=== PATIENT | female | born 1960 | race Caucasian/White ===

== ENCOUNTER 2021-11-20 09:03 | Day surgery (SDC) | payer MEDICARE ==
[~2021-11-20] VITALS: Ht 162.6 cm; Wt 72.1 kg
[~2021-11-20 09:03] MED LIST: CEFP200 PO; DULO60 PO; LACT PO; OMEP20ER PO; OXYC10TA19 PO; SODBIC650 PO; THERA-D2000 UNIT PO; TRAZ50 PO; XARELTO20 MG PO
[2021-11-20 10:35] LABS: BASOPHILS ABSOLUTE AUTO 0.11 K/mm3 (0.00-0.23); BASOPHILS PERCENT AUTO 1 % (0-2); EOSINOPHILS ABSOLUTE AUTO 0.19 K/mm3 (0.00-0.68); EOSINOPHILS PERCENT AUTO 2 % (0-6); Hematocrit 34.2 % (33.0-51.0); Hemoglobin 10.8 g/dL (11.5-16.0); IMMATURE GRAN ABSOLUTE AUTO 0.05 K/mm3 (0.00-0.10); IMMATURE GRAN PERCENT AUTO 1 % (0-1); LYMPHOCYTES ABSOLUTE AUTO 1.79 K/mm3 (0.84-5.20); LYMPHOCYTES PERCENT AUTO 21 % (21-46); MONOCYTES ABSOLUTE AUTO 0.86 K/mm3 (0.16-1.47); MONOCYTES PERCENT AUTO 10 % (4-13); Mean Corpuscular HGB 31.5 pg (26.0-34.0); Mean Corpuscular HGB Conc 31.6 g/dL (31.5-36.5); Mean Corpuscular Volume 100 fL (80-100); Mean Platelet Volume 9.7 fL (9.1-12.4); NEUTROPHILS ABSOLUTE AUTO 5.66 K/mm3 (1.96-9.15); NEUTROPHILS PERCENT AUTO 65 % (41-73); Platelet Count 481 K/mm3 (150-400); RDW Standard Deviation 62.6 fL (35.1-46.3); Red Blood Cell Count 3.43 M/mm3 (3.80-5.20); White Blood Cell Count 8.66 K/mm3 (4.00-11.30)
[2021-11-20 10:54] LABS: Bun/Creatinine Ratio 16.5 (12.0-20.0); Calcium, Blood 8.6 mg/dL (8.5-10.1); Creatinine, Blood 1.7 mg/dL (0.40-1.00); Potassium, Blood 3.9 mmol/L (3.5-5.5)
[2021-11-20 11:45] LABS: Source, Urine Nephrostomy
[2021-11-20 11:54] LABS: Appearance, Urine Bloody (Clear); Bilirubin, Urine Neg (Neg); Blood, Urine 5+ (Neg); Color, Urine Red (P-Yellow); Glucose Qualitative, Urine Neg (Neg); Ketones, Urine Neg (Neg); Leukocyte Esterase, Urine 3+ (Neg); Nitrite, Urine Neg (Neg); Protein, Urine 3+ (Neg); Specific Gravity, Urine 1.015 (1.003-1.022); Urobilinogen, Urine NORM (Normal)
[2021-11-20 11:57] LABS: Source, Urine Nephrostomy
[2021-11-20 12:01] LABS: Red Blood Cells, Urine TNTC /hpf (0-2); White Blood Cells, Urine TNTC /hpf (0-5)
[2021-11-20 12:03] LABS: Bacteria Mod /hpf; Squamous Epithelial Cells Not Seen /hpf (Few)
[2021-11-20 12:05] LABS: Appearance, Urine Turbid (Clear); Bilirubin, Urine Neg (Neg); Blood, Urine 5+ (Neg); Color, Urine Yellow (P-Yellow); Glucose Qualitative, Urine Neg (Neg); Ketones, Urine Neg (Neg); Leukocyte Esterase, Urine 3+ (Neg); Nitrite, Urine Neg (Neg); Protein, Urine 3+ (Neg); Urobilinogen, Urine NORM (Normal)
--- NOTE | 2021-11-20 12:05 | NUR ---
PT TO RECOVERY ROOM POST PROCEDURE. PT DROWSY, BUT CONVERSING APPROPRIATELY; NIKOLAS PAIN POST PROCEDURE. MONITOR SR WITH IVCD 90'S, B/P 128/82, AFEBRILS, SPO2 100% RA. R FLANK NEPH TUBE NO SWELLING/HEMATOMA, TEGADERM DRSG INTACT; CONNECTED TO DRAINAGE BAG-DRAINING BLOOD TINGED URINE. L FLANK NO SWELLING/HEMATOMA, TEGADERM DRSG INTACT; CONNECTED TO DRAINAGE BAG DRAINING BLOOD TINGED URINE. PT'S AT BEDSIDE ATTENTIVE.
[2021-11-20 12:50] LABS: White Blood Cells, Urine TNTC /hpf (0-5)
[2021-11-20 12:51] LABS: Red Blood Cells, Urine 50-100 /hpf (0-2)
[2021-11-20 12:53] LABS: Bacteria Mod /hpf; Squamous Epithelial Cells Rare /hpf (Few)
--- NOTE | 2021-11-20 13:40 | NUR ---
PT DRESSED SELF WITHOUT ISSUE, SITES UNCHANGED; IV REMOVED-CANNULA INTACT. PT AMB TO BATHROOM TO EMPTY NEPH TUBE DRAINAGE BAGS, GAIT STEADY.
--- NOTE | 2021-11-20 13:47 | NUR ---
PT AND RECEIVED DISCHARGE INSTRUCTIONS, MED LIST AND AFTER CARE INSTRUCTIONS; VERBALIZED GOOD UNDERSTANDING. PT LEFT FACILITY VIA W/C, CONDITION STABLE.
== END 2021-11-20 13:47 | disposition home or self-care (01) ==
LOC: MHTC 09:03
PROVIDERS: Internal Medicine
DX: N13.5 Crossing vessel and stricture of ureter without hydronephrosis (principal); I10 Essential (primary) hypertension; Z88.2 Allergy status to sulfonamides; Z79.01 Long term (current) use of anticoagulants; Z79.899 Other long term (current) drug therapy
CPT/HCPCS: 36415; 80048; 81001; 85025; 87077; 87086; 87186; 99152; 99153; C1729; C1769; C1887; J0692; J2250; J3010; J7030; J7040; Q9967

== ENCOUNTER 2022-01-21 13:28 | Inpatient (IN) | payer MEDICARE ==
[~2022-01-21] VITALS: Ht 162.6 cm; Wt 68.6 kg
[2022-01-21 14:41] LABS: BASOPHILS ABSOLUTE AUTO 0.07 K/mm3 (0.00-0.23); BASOPHILS PERCENT AUTO 0 % (0-2); EOSINOPHILS ABSOLUTE AUTO 0.06 K/mm3 (0.00-0.68); EOSINOPHILS PERCENT AUTO 0 % (0-6); Hematocrit 33.4 % (33.0-51.0); Hemoglobin 11.5 g/dL (11.5-16.0); IMMATURE GRAN ABSOLUTE AUTO 0.89 K/mm3 (0.00-0.10); IMMATURE GRAN PERCENT AUTO 3 % (0-1); LYMPHOCYTES ABSOLUTE AUTO 0.42 K/mm3 (0.84-5.20); LYMPHOCYTES PERCENT AUTO 1 % (21-46); MONOCYTES ABSOLUTE AUTO 1.37 K/mm3 (0.16-1.47); MONOCYTES PERCENT AUTO 4 % (4-13); Mean Corpuscular HGB 31.1 pg (26.0-34.0); Mean Corpuscular HGB Conc 34.4 g/dL (31.5-36.5); Mean Corpuscular Volume 90 fL (80-100); Mean Platelet Volume 10.6 fL (9.1-12.4); NEUTROPHILS ABSOLUTE AUTO 31.78 K/mm3 (1.96-9.15); NEUTROPHILS PERCENT AUTO 92 % (41-73); NRBC ABSOLUTE 0.07 K/mm3 (0.00-0.02); NRBC Auto 0.2 /100 WBC (0.0-0.2); Platelet Count 656 K/mm3 (150-400); RDW Coefficient Variation 14.6 % (11.7-14.2); RDW Standard Deviation 48.4 fL (35.1-46.3); White Blood Cell Count 34.59 K/mm3 (4.00-11.30)
[2022-01-21 14:52] LABS: Albumin, Blood 2.7 g/dL (3.4-5.0); Albumin/Globulin Ratio 0.4 (0.8-1.8); Bilirubin, Total 0.5 mg/dL (0.1-1.0); Bun/Creatinine Ratio 20.3 (12.0-20.0); Calcium, Blood 8.7 mg/dL (8.5-10.1); Creatinine, Blood 7.08 mg/dL (0.40-1.00); Globulin, Blood 6.5 g/dL (2.2-4.0); Potassium, Blood 3.1 mmol/L (3.5-5.5); Total Protein, Blood 9.2 g/dL (6.4-8.2)
[2022-01-21 15:54] LABS: Source, Urine Nephrostomy
[2022-01-21 16:14] LABS: Appearance, Urine Turbid (Clear); Bilirubin, Urine Neg (Neg); Blood, Urine 4+ (Neg); Color, Urine Amber (P-Yellow); Glucose Qualitative, Urine Neg (Neg); Ketones, Urine Neg (Neg); Leukocyte Esterase, Urine 3+ (Neg); Nitrite, Urine Neg (Neg); Protein, Urine 3+ (Neg); Specific Gravity, Urine 1.015 (1.003-1.022); Urobilinogen, Urine NORM (Normal)
[2022-01-21 16:40] LABS: Amorphous Heavy (0-Heavy); Bacteria Many /hpf; Squamous Epithelial Cells Rare /hpf (Few); White Blood Cells, Urine TNTC /hpf (0-5)
[2022-01-21 17:38] LABS: Source, Urine Nephrostomy
[2022-01-21 17:48] LABS: Appearance, Urine Turbid (Clear); Bilirubin, Urine Neg (Neg); Blood, Urine 4+ (Neg); Glucose Qualitative, Urine Neg (Neg); Ketones, Urine 1+ (Neg); Leukocyte Esterase, Urine 3+ (Neg); Nitrite, Urine Neg (Neg); Protein, Urine 3+ (Neg); Urobilinogen, Urine NORM (Normal)
[2022-01-21] MEDS ORDERED: Atarax10 MG PO (17:58)
[2022-01-21] MEDS ORDERED: ELIQUIS2.5 M1 PO (17:59)
[2022-01-21] MEDS ORDERED: CARVEDILOL6.25 MG PO (17:59)
[2022-01-21 18:50] LABS: Color, Urine Pale Yellow (P-Yellow); White Blood Cells, Urine TNTC /hpf (0-5)
[2022-01-21 18:52] LABS: Bacteria Many /hpf; Red Blood Cells, Urine 25-50 /hpf (0-2); Squamous Epithelial Cells Rare /hpf (Few)
[2022-01-21 19:22] LABS: Albumin, Blood 2.7 g/dL (3.4-5.0); Anion Gap 22 mmol/L (6-16); Blood Urea Nitrogen 146 mg/dL (8-24); Bun/Creatinine Ratio 20.5 (12.0-20.0); CO2, Blood 7 mmol/L (21-32); Calcium, Blood 8.8 mg/dL (8.5-10.1); Chloride, Blood 98 mmol/L (98-108); Creatinine, Blood 7.11 mg/dL (0.40-1.00); Glomerular Filtration Rate 6 (60-); Glucose, Blood 183 mg/dL (70-99); Phosphorus, Blood 9.9 mg/dL (2.5-4.9); Potassium, Blood 3.2 mmol/L (3.5-5.5); Sodium, Blood 127 mmol/L (136-145)
--- NOTE | 2022-01-21 20:00 | NUR ---
ASSUMED CARE OF PT AT 194. REPORT RECEIVED. PT ARRIVES TO ROOM ICU 10 FROM ED. SLIDE TRANSFERRED TO BED. PT ALERT AND ORIENTED. VERY FATIQUED AND SOFT SPOKEN. NEPHROSTOMY TUBES TIMES 2 WITH BAGS. ILEOSTOMY BAG WELL. WILL REVIEW CHART AND PLAN OF CARE FOR THIS PT.
[2022-01-21 20:10] LABS: Albumin, Blood 2.2 g/dL (3.4-5.0); Anion Gap 19 mmol/L (6-16); Blood Urea Nitrogen 141 mg/dL (8-24); Bun/Creatinine Ratio 21.5 (12.0-20.0); CO2, Blood 9 mmol/L (21-32); Calcium, Blood 8.2 mg/dL (8.5-10.1); Chloride, Blood 100 mmol/L (98-108); Creatinine, Blood 6.56 mg/dL (0.40-1.00); Glomerular Filtration Rate 7 (60-); Glucose, Blood 171 mg/dL (70-99); Potassium, Blood 3.4 mmol/L (3.5-5.5); Sodium, Blood 128 mmol/L (136-145)
[2022-01-21 22:03] LABS: Anion Gap 17 mmol/L (6-16); Blood Urea Nitrogen 136 mg/dL (8-24); Bun/Creatinine Ratio 22.6 (12.0-20.0); CO2, Blood 11 mmol/L (21-32); Calcium, Blood 7.9 mg/dL (8.5-10.1); Chloride, Blood 104 mmol/L (98-108); Creatinine, Blood 6.01 mg/dL (0.40-1.00); Glomerular Filtration Rate 8 (60-); Glucose, Blood 118 mg/dL (70-99); Magnesium, Blood 1.2 mg/dL (1.6-2.4); Phosphorus, Blood 7.2 mg/dL (2.5-4.9); Potassium, Blood 2.9 mmol/L (3.5-5.5); Sodium, Blood 132 mmol/L (136-145)
--- NOTE | 2022-01-21 23:38 | NUR ---
LABS HAVE BEEN CALLED TO DR RAMOS WITH ORDERS RECEIVED. DR FELIX ALSO PHONES TO GET UPDATE ON PT. PT HAS POWERGLIDE PLACED BY FABIAN SANZ IN RIGHT UPPER ARM. TWO ATTEMPTS IN LEFT UPPER ARM UNSUCCESSFUL. PT GOOD HISTORIAN THOUGH OCCASSIONALY FORGETFUL. TOLERATING IV ANTIBIOTICS WELL. NO S/S ADVERSE REACTIONS. WILL CONTINUE TO MONITOR PT.
--- NOTE | 2022-01-22 03:10 | NUR ---
CALL MADE TO DR MONAHAN CONCERNING PT WITH INVOLVEMENT IN ALL LEADS WITH ST. CRP, EKG, AND ECHO TO BE DONE. PT HAS NO COMPLAINTS OF CHEST PAIN.
[2022-01-22 04:13] LABS: BASOPHILS ABSOLUTE AUTO 0.02 K/mm3 (0.00-0.23); BASOPHILS PERCENT AUTO 0 % (0-2); EOSINOPHILS ABSOLUTE AUTO 0.03 K/mm3 (0.00-0.68); EOSINOPHILS PERCENT AUTO 0 % (0-6); Hematocrit 24.8 % (33.0-51.0); Hemoglobin 8.6 g/dL (11.5-16.0); IMMATURE GRAN ABSOLUTE AUTO 0.36 K/mm3 (0.00-0.10); IMMATURE GRAN PERCENT AUTO 2 % (0-1); LYMPHOCYTES ABSOLUTE AUTO 1.19 K/mm3 (0.84-5.20); LYMPHOCYTES PERCENT AUTO 5 % (21-46); MONOCYTES ABSOLUTE AUTO 0.97 K/mm3 (0.16-1.47); MONOCYTES PERCENT AUTO 4 % (4-13); Mean Corpuscular HGB 30.8 pg (26.0-34.0); Mean Corpuscular HGB Conc 34.7 g/dL (31.5-36.5); Mean Corpuscular Volume 89 fL (80-100); Mean Platelet Volume 10.3 fL (9.1-12.4); NEUTROPHILS ABSOLUTE AUTO 20.14 K/mm3 (1.96-9.15); NEUTROPHILS PERCENT AUTO 89 % (41-73); NRBC ABSOLUTE 0.05 K/mm3 (0.00-0.02); NRBC Auto 0.2 /100 WBC (0.0-0.2); Platelet Count 474 K/mm3 (150-400); RDW Standard Deviation 45.4 fL (35.1-46.3); Red Blood Cell Count 2.79 M/mm3 (3.80-5.20); White Blood Cell Count 22.71 K/mm3 (4.00-11.30)
--- NOTE | 2022-01-22 04:42 | NUR ---
MEDICATED WITH 25 MCG'S FENTANYL FOR COMPLAINTS OF LEFT ABDOMINAL PAIN WITH RADIATION TO CHEST AND BACK. DID ADD TROPONIN TO AM LABS PER DR MONAHAN AND WILL GET EKG TO RULE OUT CARDIAC INVOLVEMENT.
[2022-01-22 04:45] LABS: CPK Creatine Kinase 19 U/L (26-193); Magnesium, Blood 2.1 mg/dL (1.6-2.4); Uric Acid, Blood 10.6 mg/dL (2.6-6.0)
[2022-01-22 04:56] LABS: Alanine Aminotransfer (ALT/SGP 7 U/L (12-78); Albumin, Blood 1.9 g/dL (3.4-5.0); Albumin/Globulin Ratio 0.4 (0.8-1.8); Alk Phos 17 U/L (50-136); Anion Gap 16 mmol/L (6-16); Aspartate Aminotrans (AST/SGOT 10 U/L (12-37); Bilirubin, Total 0.6 mg/dL (0.1-1.0); Blood Urea Nitrogen 125 mg/dL (8-24); Bun/Creatinine Ratio 25.5 (12.0-20.0); CO2, Blood 15 mmol/L (21-32); Calcium, Blood 7.6 mg/dL (8.5-10.1); Chloride, Blood 101 mmol/L (98-108); Globulin, Blood 4.5 g/dL (2.2-4.0); Glomerular Filtration Rate 10 (60-); Glucose, Blood 169 mg/dL (70-99); Phosphorus, Blood 5.3 mg/dL (2.5-4.9); Potassium, Blood 2.5 mmol/L (3.5-5.5); Sodium, Blood 132 mmol/L (136-145); Vancomycin, Random 25.9 ug/mL
[2022-01-22 05:13] LABS: Total Protein, Blood 6.4 g/dL (6.4-8.2)
--- NOTE | 2022-01-22 07:14 | NUR ---
ASSUME CARE: I have assumed care of patient at this time.
--- NOTE | 2022-01-22 09:30 | NUR ---
FAMILY PHONE CALL: Pt's , Darius, called and updated on pt status.
--- NOTE | 2022-01-22 10:31 | NUR ---
UPDATE: Provider called for pt's home oxycodone; He states he will place order
--- NOTE | 2022-01-22 11:34 | NUR ---
SHIFT SUMMARY/TRANSFER: Report given to Aron in PCU. NEURO: Pt a/o x4, moving all extremities. She complains of generalized aching for which she was given one dose of PRN IV fentanyl and her home dose of 10mg oxycodone PO. RESPIRATORY: CTA on RA. CARDIAC: sinus rhythm on monitor. SBPs 90-100s with MAPs 65-70. GI: ileostomy bag in place. hypoactive bowel tones : bilateral urostomy tubes and ileal conduit in place. drained at 11am and ice packs placed on urostomy bags for 24-hour urine collection. PSYCH/SOCIAL: pt agreeable. called for update and states he will be by to visit this afternoon.
[2022-01-22 16:57] LABS: Albumin, Blood 1.7 g/dL (3.4-5.0); Anion Gap 14 mmol/L (6-16); Blood Urea Nitrogen 104 mg/dL (8-24); Bun/Creatinine Ratio 29.6 (12.0-20.0); CO2, Blood 19 mmol/L (21-32); Calcium, Blood 7.6 mg/dL (8.5-10.1); Chloride, Blood 101 mmol/L (98-108); Creatinine, Blood 3.51 mg/dL (0.40-1.00); Glomerular Filtration Rate 14 (60-); Glucose, Blood 138 mg/dL (70-99); Magnesium, Blood 1.5 mg/dL (1.6-2.4); Phosphorus, Blood 2.8 mg/dL (2.5-4.9); Potassium, Blood 2.6 mmol/L (3.5-5.5); Sodium, Blood 134 mmol/L (136-145)
[2022-01-22 17:07] LABS: Vancomycin, Random 19.9 ug/mL
--- NOTE | 2022-01-22 18:54 | NUR ---
REPORT RECIEVED FROM [employer] P[employer]ING MACHINE OPERATOR AT 1134. PT ARRIVED TO UNIT AT 1153. PT ON RA, VSS WITH MAPS >65. NO REPORT OF CHEST PAIN/PRESSURE SINCE ARRIVAL TO UNIT. NO REORT OF SOB/DYSPNEA SINCE ARRIVAL TO UNIT. NEPHROSTOMY BAGS PUT IN ICE FOR 24 HR URINE COLLECTION. PT REPORTS NO APPETITE, ENCOURAGED TO EAT MAGIC CUP PT ATE 2/3 CUP.
[2022-01-23 04:38] LABS: Hematocrit 22.4 % (33.0-51.0); Hemoglobin 7.9 g/dL (11.5-16.0); Mean Corpuscular HGB 31.1 pg (26.0-34.0); Mean Corpuscular HGB Conc 35.3 g/dL (31.5-36.5); Mean Corpuscular Volume 88 fL (80-100); Mean Platelet Volume 10.7 fL (9.1-12.4); NRBC ABSOLUTE 0.08 K/mm3 (0.00-0.02); NRBC Auto 0.5 /100 WBC (0.0-0.2); Platelet Count 432 K/mm3 (150-400); RDW Coefficient Variation 13.9 % (11.7-14.2); RDW Standard Deviation 44.8 fL (35.1-46.3); Red Blood Cell Count 2.54 M/mm3 (3.80-5.20); White Blood Cell Count 16.79 K/mm3 (4.00-11.30)
[2022-01-23 05:08] LABS: Albumin, Blood 1.6 g/dL (3.4-5.0); Anion Gap 12 mmol/L (6-16); Blood Urea Nitrogen 86 mg/dL (8-24); CO2, Blood 22 mmol/L (21-32); Calcium, Blood 7.9 mg/dL (8.5-10.1); Chloride, Blood 99 mmol/L (98-108); Creatinine, Blood 2.61 mg/dL (0.40-1.00); Glomerular Filtration Rate 21 (60-); Glucose, Blood 112 mg/dL (70-99); Magnesium, Blood 1.7 mg/dL (1.6-2.4); Phosphorus, Blood 3.4 mg/dL (2.5-4.9); Sodium, Blood 133 mmol/L (136-145); Vancomycin, Random 17.9 ug/mL
--- NOTE | 2022-01-23 06:35 | NUR ---
SHIFT SUMMARY: PT HAS BEEN A&OX4 THROUGHOUT SHIFT. HR NOTED TO BE SR/ST WITH ELEVATED ST SEGMENT. ELEVATION NOT NEW, DOCUMENTED MULTIPLE TIMES DURING STAY. NEW EKG TAKEN DURING SHIFT FOR EVALUATE FOR WORSTENING ST ELEVATION, FOUND TO BE UNCHANGED. HYPOTENSIVE IN SBP IN 90'S. MAP >65. DENIES ANY DIZZIENESS/LIGHTHEADEDNESS. DENIES ANY SOB OR CHEST PAIN DURING SHIFT. K RIDERS X 3 GIVEN DURING SHIFT. A.M. LAB RESULTS CALLED TO DR. RAMOS, STATES ORDERS HAVE ALREADY BEEN PLACED. PT ALLOWED SELF TO BE REPOSITIONED IN BED PERIOTICALLY, APPROXIMATELY Q4H. NEPHROSTOMY BAGS X 2 ON ICE AND 24 HOUR URINE COLLECTION CONTINUES TO BE COLLECTED UNTIL 1100 01/23/22. SODIUM BICARB CHANGED TO NS FLUIDS THIS A.M. PER ORDERS.
--- NOTE | 2022-01-23 18:40 | NUR ---
SHIFT SUMMARY PT ALERT AND ORIENTED X 4. HR STABLE. BP HYPOTENSIVE, MAP ABOVE 65. HELD BP MEDS. NO CP OR PRESSURE. OXYGEN SATURATION MAINTAINED ABOVE 92% ON RA. PT TURNED Q 2 HOURS. R AND L NEPHROSTOMY BAGS DRAINING CLEAR YELLOW FLUID. COLOSTOMY DRAINING LIQUID BROWN STOOL. UROSTOMY DRAINING SMALL AMOUNT OF CLEAR YELLOW FLUID W/SEDIMENT. PPN GTT,SEE EMAR. PT NOW Q 6 CBG'S D/T NEW ORDER FOR PPN. 24 HR URINE SENT TO LAB AT 1100. CALL LIGHT WITHIN REACH.WILL CONT TO MONITOR UNIL REPORT GIVEN TO NIGHTSHIFT FABIAN.
[2022-01-24 04:14] LABS: BASOPHILS ABSOLUTE AUTO 0.01 K/mm3 (0.00-0.23); BASOPHILS PERCENT AUTO 0 % (0-2); EOSINOPHILS ABSOLUTE AUTO 0.18 K/mm3 (0.00-0.68); EOSINOPHILS PERCENT AUTO 1 % (0-6); Hematocrit 21.4 % (33.0-51.0); Hemoglobin 7.3 g/dL (11.5-16.0); IMMATURE GRAN ABSOLUTE AUTO 0.17 K/mm3 (0.00-0.10); IMMATURE GRAN PERCENT AUTO 1 % (0-1); LYMPHOCYTES PERCENT AUTO 14 % (21-46); MONOCYTES ABSOLUTE AUTO 0.81 K/mm3 (0.16-1.47); MONOCYTES PERCENT AUTO 6 % (4-13); Mean Corpuscular HGB 31.5 pg (26.0-34.0); Mean Corpuscular HGB Conc 34.1 g/dL (31.5-36.5); Mean Corpuscular Volume 92 fL (80-100); Mean Platelet Volume 10.7 fL (9.1-12.4); NEUTROPHILS ABSOLUTE AUTO 9.74 K/mm3 (1.96-9.15); NEUTROPHILS PERCENT AUTO 77 % (41-73); NRBC ABSOLUTE 0.05 K/mm3 (0.00-0.02); NRBC Auto 0.4 /100 WBC (0.0-0.2); Platelet Count 415 K/mm3 (150-400); RDW Coefficient Variation 14.8 % (11.7-14.2); RDW Standard Deviation 49.2 fL (35.1-46.3); Red Blood Cell Count 2.32 M/mm3 (3.80-5.20); White Blood Cell Count 12.61 K/mm3 (4.00-11.30)
[2022-01-24 04:43] LABS: Albumin, Blood 1.4 g/dL (3.4-5.0); Anion Gap 10 mmol/L (6-16); Blood Urea Nitrogen 60 mg/dL (8-24); Bun/Creatinine Ratio 34.5 (12.0-20.0); CO2, Blood 21 mmol/L (21-32); Calcium, Blood 7.9 mg/dL (8.5-10.1); Chloride, Blood 106 mmol/L (98-108); Creatinine, Blood 1.74 mg/dL (0.40-1.00); Glomerular Filtration Rate 33 (60-); Glucose, Blood 114 mg/dL (70-99); Magnesium, Blood 1.7 mg/dL (1.6-2.4); Phosphorus, Blood 3.5 mg/dL (2.5-4.9); Potassium, Blood 3.6 mmol/L (3.5-5.5); Sodium, Blood 137 mmol/L (136-145); Triglycerides 64 mg/dL (30-160); Vancomycin, Random 21.2 ug/mL
--- NOTE | 2022-01-24 18:12 | NUR ---
SHIFT SUMMARY; ASSUMED CARE AT 0700. A/A/OX4. REPOSITIONS SELF IN BED NEEDED. COLOSTOMY BAG CHANGED TODAY, ILLEOSTOMY AND NEPHRO TUBES IN PLACE BILATERALLY AND DRAINING. PPN INFUSING WITH BAG, TUBING AND FILTER CHANGED AT 1700. APPETITE INCREASED DURING SHIFT, ATE SMALL AMOUNTS OF MEALS AND TAKING IN PO FLUIDS WELL. NO ACUTE MEDICAL CHANGES, VSS, WILL CONTINUE TO MONITOR AND TREAT UNTIL CHANGE OF SHIFT.
--- NOTE | 2022-01-24 22:51 | NUR ---
PT IS A&OX4. PT STATING "I DON'T FEEL WELL", INFORMED THAT SHE HAS GENERLIZED PAIN WHEN REFUSING TO "NO FEELING WELL". MEDICATED FOR PAIN, SEE MAR. NEPHROSOTOMY TUBES BILATERALLY DRIANING CLEAR, TEA COLORED URINE WITHOUT DIFFICULTY. ILEAL CONDUIT IN PLACE, NO DRAINAGE NOTED AT THIS TIME. SMALL AMOUNT OF BROWN, LIQUID STOOL NOTED IN COLOSTOMY POUCH. PPN INFUISNG IN POWERGLYDE. PT ABLE TO EAT POPSICLE WITHOUT NAUSEA. NOW RESTING IN BED WITH EYES CLOSED, APPEARS TO BE SLEEPING.
[2022-01-25 04:21] LABS: BASOPHILS ABSOLUTE AUTO 0.02 K/mm3 (0.00-0.23); BASOPHILS PERCENT AUTO 0 % (0-2); EOSINOPHILS ABSOLUTE AUTO 0.32 K/mm3 (0.00-0.68); EOSINOPHILS PERCENT AUTO 3 % (0-6); Hematocrit 21.8 % (33.0-51.0); Hemoglobin 7.3 g/dL (11.5-16.0); IMMATURE GRAN ABSOLUTE AUTO 0.21 K/mm3 (0.00-0.10); IMMATURE GRAN PERCENT AUTO 2 % (0-1); LYMPHOCYTES ABSOLUTE AUTO 1.88 K/mm3 (0.84-5.20); LYMPHOCYTES PERCENT AUTO 15 % (21-46); MONOCYTES ABSOLUTE AUTO 0.98 K/mm3 (0.16-1.47); MONOCYTES PERCENT AUTO 8 % (4-13); Mean Corpuscular HGB 31.1 pg (26.0-34.0); Mean Corpuscular HGB Conc 33.5 g/dL (31.5-36.5); Mean Corpuscular Volume 93 fL (80-100); Mean Platelet Volume 10.2 fL (9.1-12.4); NEUTROPHILS PERCENT AUTO 73 % (41-73); NRBC ABSOLUTE 0.03 K/mm3 (0.00-0.02); NRBC Auto 0.2 /100 WBC (0.0-0.2); Platelet Count 394 K/mm3 (150-400); RDW Coefficient Variation 15.2 % (11.7-14.2); RDW Standard Deviation 51.1 fL (35.1-46.3); Red Blood Cell Count 2.35 M/mm3 (3.80-5.20); White Blood Cell Count 12.51 K/mm3 (4.00-11.30)
[2022-01-25 04:44] LABS: Albumin, Blood 1.4 g/dL (3.4-5.0); Anion Gap 8 mmol/L (6-16); Blood Urea Nitrogen 39 mg/dL (8-24); Bun/Creatinine Ratio 28.9 (12.0-20.0); CO2, Blood 23 mmol/L (21-32); Calcium, Blood 7.7 mg/dL (8.5-10.1); Chloride, Blood 109 mmol/L (98-108); Creatinine, Blood 1.35 mg/dL (0.40-1.00); Ferritin, Serum 175 ng/mL (8-252); Glomerular Filtration Rate 45 (60-); Glucose, Blood 117 mg/dL (70-99); Iron Serum 18 ug/dL (50-170); Magnesium, Blood 1.5 mg/dL (1.6-2.4); Percent Saturation 12.8 % (15.0-50.0); Phosphorus, Blood 2.7 mg/dL (2.5-4.9); Potassium, Blood 3.1 mmol/L (3.5-5.5); Sodium, Blood 140 mmol/L (136-145); Total Iron Binding Capacity 141 ug/dL (250-450); Vancomycin, Random 15.7 ug/mL
--- NOTE | 2022-01-25 06:49 | NUR ---
PT MEDICATED FOR PAIN, SEE MADALYN. PT REPORTS GENERALIZED PAIN. VSS WITH CONTINUED ST ELEVATION ON TELEMETRY, UNCHANGED FROM PREVIOUS SHIFT. DR. RAMOS CALLED [facility] A[facility] LABS. RECEIVED ORDERS FOR IV POTASSIUM AND MAGNESIUM, MEDS NOT UP FROM PHARMACY AT THIS TIME. ATTEMPTED TO PLACE PERIFERAL IV BY [facility] CHARGE NURSE RENAY ARROYO. PPN INFUSING IN RIGHT POWERGLYDE.
--- NOTE | 2022-01-25 18:15 | NUR ---
SHIFT SUMMARY; ASSUMED CARE AT 0700. A/A/OX4. REPOSITIONS SELF IN BED NEEDED. BILATERAL NEPHRO TUBES, ILLEOSTOMY AND COLOSTOMY. VSS DURING SHIFT. LITTLE PO INTAKE TODAY, PPN INFUSING AT THIS TIME. NO ACUTE MEDICAL CHANGES, WILL CONTINUE TO MONITOR AND TREAT UNTIL CHANGE OF SHIFT.
[2022-01-26 05:03] LABS: BASOPHILS ABSOLUTE AUTO 0.05 K/mm3 (0.00-0.23); BASOPHILS PERCENT AUTO 0 % (0-2); EOSINOPHILS ABSOLUTE AUTO 0.33 K/mm3 (0.00-0.68); EOSINOPHILS PERCENT AUTO 3 % (0-6); Hematocrit 22.8 % (33.0-51.0); Hemoglobin 7.3 g/dL (11.5-16.0); IMMATURE GRAN ABSOLUTE AUTO 0.28 K/mm3 (0.00-0.10); IMMATURE GRAN PERCENT AUTO 2 % (0-1); LYMPHOCYTES PERCENT AUTO 16 % (21-46); MONOCYTES ABSOLUTE AUTO 0.92 K/mm3 (0.16-1.47); MONOCYTES PERCENT AUTO 8 % (4-13); Mean Corpuscular HGB 30.5 pg (26.0-34.0); Mean Corpuscular Volume 95 fL (80-100); Mean Platelet Volume 10.4 fL (9.1-12.4); NEUTROPHILS ABSOLUTE AUTO 8.61 K/mm3 (1.96-9.15); NEUTROPHILS PERCENT AUTO 71 % (41-73); NRBC ABSOLUTE 0.02 K/mm3 (0.00-0.02); NRBC Auto 0.2 /100 WBC (0.0-0.2); Platelet Count 411 K/mm3 (150-400); RDW Coefficient Variation 15.7 % (11.7-14.2); RDW Standard Deviation 53.9 fL (35.1-46.3); Red Blood Cell Count 2.39 M/mm3 (3.80-5.20); White Blood Cell Count 12.09 K/mm3 (4.00-11.30)
[2022-01-26 05:16] LABS: Albumin, Blood 1.4 g/dL (3.4-5.0); Anion Gap 8 mmol/L (6-16); Blood Urea Nitrogen 25 mg/dL (8-24); Bun/Creatinine Ratio 21.6 (12.0-20.0); CO2, Blood 23 mmol/L (21-32); Chloride, Blood 109 mmol/L (98-108); Creatinine, Blood 1.16 mg/dL (0.40-1.00); Glomerular Filtration Rate 54 (60-); Glucose, Blood 121 mg/dL (70-99); Magnesium, Blood 1.7 mg/dL (1.6-2.4); Potassium, Blood 3.8 mmol/L (3.5-5.5); Sodium, Blood 140 mmol/L (136-145)
[2022-01-26 13:19] LABS: Influenza A, PCR NEGATIVE (NEGATIVE); Influenza B, PCR NEGATIVE (NEGATIVE); Resp Syncytial Virus, PCR NEGATIVE (NEGATIVE); SARS-Cov-2 (COVID-19) PCR, MMC NEGATIVE (NEGATIVE)
[2022-01-26] MEDS ORDERED: CEFEPIME 11 GM/50 ML INJ (14:23)
[2022-01-26] MEDS ORDERED: MELATONIN10 M1 PO (14:24)
[2022-01-26] MEDS ORDERED: Metronidaz500 MG/100 IV (14:24)
[2022-01-26] MEDS ORDERED: ONDA4ODT MM (14:25)
[2022-01-26] MEDS ORDERED: SPIR25 PO (14:25)
--- NOTE | 2022-01-26 16:00 | NUR ---
REPORT CALLED TO YVONNE PERALTA AT [facility]. PT WILL BE TRANSPORTED VIA WHEELCHAIR WITH MEDICAL TRANSPORT. ALL BELONGINGS TO BE SENT WITH PT. PT'S AT BEDSIDE, EXPRESSED CONCERNS ABOUT THE PT'S DISCHARGE, DR SANTACRUZ CONTACTED AND CAME TO ROOM TO ADDRESS CONCERNS TO PT AND HER 'S SATISFACTION.
[2022-02-01 12:11] LABS: ALDOS/RENIN RATIO 3.1 (0.0-30.0); ALDOSTERONE 13.3 ng/dL (0.0-30.0)
== END 2022-01-26 16:35 | DRG 698 ==
LOC: ER 13:28 → ICUW 17:53 → PCU 01-22 12:20
PROVIDERS: Emergency Medicine; Internal Medicine; Internal Medicine Nephrology; Pharmacist; Student in an Organized Health Care Education/Training Program; ADMIT Family Medicine
PROC: 05HY33Z Insertion of Infusion Device into Upper Vein, Percutaneous Approach (ICD-10-PCS; principal; 2022-01-21)
PROC: 3E03329 Introduction of Other Anti-infective into Peripheral Vein, Percutaneous Approach (ICD-10-PCS; 2022-01-21)
DX: T83.598A Infection and inflammatory reaction due to other prosthetic device, implant and graft in urinary system, initial encounter (principal); R65.20 Severe sepsis without septic shock; N13.8 Other obstructive and reflux uropathy; N17.9 Acute kidney failure, unspecified; E87.2 Acidosis; E87.1 Hypo-osmolality and hyponatremia; N10 Acute pyelonephritis; Z66 Do not resuscitate; Z20.822 Contact with and (suspected) exposure to COVID-19; E83.42 Hypomagnesemia; E87.6 Hypokalemia; E79.0 Hyperuricemia without signs of inflammatory arthritis and tophaceous disease; E88.09 Other disorders of plasma-protein metabolism, not elsewhere classified; I12.9 Hypertensive chronic kidney disease with stage 1 through stage 4 chronic kidney disease, or unspecified chronic kidney disease; N18.30 Chronic kidney disease, stage 3 unspecified; D63.1 Anemia in chronic kidney disease; E83.39 Other disorders of phosphorus metabolism; Z86.718 Personal history of other venous thrombosis and embolism; Z92.3 Personal history of irradiation; Z93.6 Other artificial openings of urinary tract status; Z93.2 Ileostomy status; Z93.3 Colostomy status; Z88.2 Allergy status to sulfonamides; Z88.6 Allergy status to analgesic agent; Z88.8 Allergy status to other drugs, medicaments and biological substances; Z79.01 Long term (current) use of anticoagulants; Y83.3 Surgical operation with formation of external stoma as the cause of abnormal reaction of the patient, or of later complication, without mention of misadventure at the time of the procedure
CPT/HCPCS: 0241U; 36415; 71045; 74176; 80053; 80069; 80202; 81001; 82088; 82530; 82533; 82550; 82728; 82947; 83540; 83550; 83605; 83735; 84100; 84132; 84244; 84443; 84478; 84484; 84550; 85025; 85027; 86141; 87040; 87086; 93005; 93010; 93306; 94762; 96365; 96366; 96367; 97110; 97162; 97530; 99285-25; A9270; C1751; C9113; J0610; J0692; J0881; J2405; J2543; J2916; J3010; J3370; J3411; J3475; J3480; J7030; J7040; J7050; J7060; J7070; J7120; J7131

== ENCOUNTER → 2022-05-07 | Outpatient (CLI) | payer MEDICARE ==
[~2022-05-07] MED LIST changes: +Atarax10 MG PO; +CARVEDILOL6.25 MG PO; +CEFEPIME 11 GM/50 ML INJ; +ELIQUIS2.5 M1 PO; +MELATONIN10 M1 PO; +Metronidaz500 MG/100 IV; +ONDA4ODT MM; +SPIR25 PO
[2022-05-07 16:05] LABS: Creatinine Urine 44.2 mg/dL (27.00-270.00); Protein, Urine Quantitative 146.2 mg/dL (0.0-11.9)
== END | disposition home or self-care (01) ==
LOC: LAB 13:32 → LAB SHORT 13:32
PROVIDERS: Internal Medicine Nephrology
DX: N18.30 Chronic kidney disease, stage 3 unspecified (principal); D63.1 Anemia in chronic kidney disease
CPT/HCPCS: 81050; 82043; 82570; 84156

== ENCOUNTER → 2022-10-30 | Outpatient (CLI) | payer MEDICARE | LOC: LAB SHORT 12:00 → LAB 12:00 | DX: M54.50 Low back pain, unspecified (principal) | CPT/HCPCS: 87086 ==